=== PATIENT | male | born 1965 | race African-American/Black ===

== ENCOUNTER 2020-05-03 13:55 | Inpatient (IN) | payer BC ==
--- NOTE | 2020-05-03 14:18 | BHS.RME ---
Substance Use & Tx History - Substance Use History Alcohol Substance amount: 6 pack of 16 ounce beer Frequency of use: Daily Substance route: Oral Date of Last Use: 05/02/20 (First use age 17 y. No seizure or blackout. 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
--- NOTE | 2020-05-03 16:18 | HP ---
CIWA Score Nausea/Vomitin-No Nausea/No Vomiting Muscle Tremors: None Anxiety: 0-No Anxiety, at Ease Agitation: 0-Normal Activity Paroxysmal Sweats: No Perspiration Orientation: 2-Disoriented Date<2 days Tacttile Disturbances: 0-None Auditory Disturbances: 0-None Visual Disturbances: 0-None Headache: 0-None Present CIWA-Ar Total Score: 2 - Admission Criteria [facility]ASAS Guidelines: Admission for Medically Managed Detox: Requires at least one of the followin. CIWA greater than 12 2. Seizures within the past 24 hours 3. Delirium tremens within the past 24 hours 4. Hallucinations within the past 24 hours 5. Acute intervention needed for co occurring medical disorder 6. Acute intervention needed for co occurring psychiatric disorder 7. Severe withdrawal that cannot be handled at a lower level of care (continued vomiting, continued diarrhea, abnormal vital signs) requiring intravenous medication and/or fluids 8. Admission ROS [facility] - HPI Allergies/Adverse Reactions: Allergies Allergy/AdvReac Type Severity Reaction Status Date / Time No Known Allergies Allergy Verified 05/03/20 16:30 History of Present Illness: pt here requesting detox form alcohol use . Pt is poor historian , intoxicated WES 0.158 . " I have been drinking a lot lately " denies medical / psychiatric issues , states he is on no meds Exam Limitations: Intoxication - Review of Systems Constitutional: No Symptoms Reported EENT: reports: No Symptoms Reported Respiratory: reports: No Symptoms reported Cardiac: reports: No Symptoms Reported GI: reports: No Symptoms Reported : reports: No Symptoms Reported Musculoskeletal: reports: No Symptoms Reported Integumentary: reports: No Symptoms Reported Neuro: reports: No Symptoms reported Endocrine: reports: No Symptoms Reported Hematology: reports: No Symptoms Reported Psychiatric: reports: Disorientated Patient History - Smoking Cessation Smoking history: Smoker current status UNK Initiated information on smoking cessation: No - Substances abused Alcohol Substance route: Oral Frequency: Daily Amount used: liquor- 1 pint, beer- 1 six pk Age of first use: 17 Date of last use: 05/03/20 Admission Physical Exam [facility] Physical General Appearance: Yes: Intoxicated HEENTM: Yes: EOMI, Hearing grossly Normal, Normocephalic, Normal Voice Respiratory: Yes: Chest Non-Tender, Lungs Clear, Normal Breath Sounds, No Respiratory Distress, No Accessory Muscle Use Neck: Yes: No masses,lesions,Nodules, Trachea in good position Cardiology: Yes: Regular Rhythm, Regular Rate, S1, S2 Abdominal: Yes: Non Tender, Soft Musculoskeletal: Yes: Other (staggering gait) Extremities: Yes: Normal Range of Motion, Non-Tender Neurological: Yes: Alert, Motor Strength 5/5 Integumentary: Yes: Dry, Warm - Diagnostic (1) Alcohol intoxication Current Visit: Yes Status: Acute Breathalyzer - Breathalyzer Breathalyzer: 0.158 Urine Drug Screen - Test Device Lot number: [id number] Expiration date: 07/04/21 - Control Is test valid?: Yes - Results Drug screen NEGATIVE: Yes Inpatient Rehab Admission - Rehab Decision to Admit Inpatient rehab admission?: No
[2020-05-03] MEDS ORDERED: MAGNESIUM CITRATE 300 ML BOTTLE PO PRN (16:30)
[2020-05-03] MEDS ORDERED: IBUPROFEN 400 MG TABLET (FP) PO PRN (16:30)
[2020-05-03] MEDS ORDERED: MAGNESIUM HYDROX 2400MG/30ML ORAL SUSPENSION 30 ML CUP PO PRN (16:30)
[2020-05-03] MEDS ORDERED: MENTHOL/PHENOL 1 EACH UD MM PRN (16:30)
[2020-05-03] MEDS ORDERED: ACETAMINOPHEN 325 MG TABLET (FP) PO PRN ×2 (16:30)
[2020-05-03] MEDS ORDERED: BISMUTH SUBSALICYLATE 524 MG/30 ML UD PO PRN (16:30)
[2020-05-03] MEDS ORDERED: MAG HYDROX/AL HYDROX/SIMETH 30 ML UNIT-DOSE CUP PO PRN (16:30)
[2020-05-03 16:50] VITALS: BMI 27.7
[2020-05-03] MEDS: chlordiazePOXIDE HCL 10 MG CAPSULE PO PRN (17:48)
[2020-05-03] MEDS: THIAMINE HCL 100 MG TABLET (FP) PO SCH (22:18)
[2020-05-03] MEDS: hydrOXYzine PAMOATE 25 MG CAPSULE (FP) PO PRN (22:18)
[2020-05-03] MEDS: MELATONIN 5 MG TABLETS PO PRN (22:18)
[2020-05-03] MEDS: chlordiazePOXIDE HCL 25 MG CAPSULE PO SCH (22:20)
[2020-05-04] MEDS: chlordiazePOXIDE HCL 25 MG CAPSULE PO SCH ×3 (06:16→22:09)
[2020-05-04] MEDS: PRENATAL VITAMINS W/ FOLIC ACID TABLET (FP) PO SCH (10:21)
[2020-05-04] MEDS: hydrOXYzine PAMOATE 25 MG CAPSULE (FP) PO PRN ×2 (10:23→22:08)
[2020-05-04] MEDS: chlordiazePOXIDE HCL 10 MG CAPSULE PO PRN (10:45)
--- NOTE | 2020-05-04 10:51 | PN ---
[facility] CIWA - CIWA Score Nausea/Vomitin-No Nausea/No Vomiting Muscle Tremors: 4-Moderate,w/Arms Extend Anxiety: 4-Mod. Anxious/Guarded Agitation: 0-Normal Activity Paroxysmal Sweats: 1-Minimal Palms Moist Orientation: 0-Oriented Tacttile Disturbances: 0-None Auditory Disturbances: 0-None Visual Disturbances: 0-None Headache: 0-None Present CIWA-Ar Total Score: 9 BHS Progress Note (SOAP) Subjective: Pt is a 54 y/o male admitted to detox for alcohol withdrawal sx. Pt is aon Librium regimen. WES 0.158 on admission. c/o anxiety tremors Fatigue Objective: 05/04/20 10:49 Vital Signs - 24 hr 05/03/20 05/03/20 05/03/20 16:38 17:54 20:42 Temperature 97 F L 97.3 F L 98.2 F Pulse Rate 84 91 H 108 H Respiratory 16 18 18 Rate Blood Pressure 139/77 144/90 139/96 O2 Sat by Pulse 96 Oximetry (%) 05/04/20 05/04/20 05/04/20 00:30 03:30 06:15 Temperature 98.4 F Pulse Rate 110 H Respiratory 20 18 16 Rate Blood Pressure 138/74 O2 Sat by Pulse 95 Oximetry (%) 05/04/20 09:14 Temperature 98.1 F Pulse Rate 99 H Respiratory 18 Rate Blood Pressure 131/73 O2 Sat by Pulse 95 Oximetry (%) Labs pending draw-pt refused. This designer/writer spoke with patient and explained the need to have a baseline lab results at his hospital visit(pt concerned about constant blood drawn at every hospital he goes)-First admission to [facility]. Pt appeared to agree with blood draw in the morning. Nurse Coty informed of pt's plan to draw blood tomorrow morning. Assessment: 05/04/20 10:53 withdrawal sx Plan: cont detox increase po fluids maintain safety
[2020-05-04] MEDS: THIAMINE HCL 100 MG TABLET (FP) PO SCH (22:08)
[2020-05-04] MEDS: MELATONIN 5 MG TABLETS PO PRN (22:08)
[2020-05-05] MEDS: chlordiazePOXIDE 5 MG CAPSULE PO SCH ×3 (06:34→22:28)
--- NOTE | 2020-05-05 09:34 | PN ---
[facility] CIWA - CIWA Score Nausea/Vomitin-No Nausea/No Vomiting Muscle Tremors: 5 Anxiety: 4-Mod. Anxious/Guarded Agitation: 4-Moderately Restless Paroxysmal Sweats: 1-Minimal Palms Moist Orientation: 0-Oriented Tacttile Disturbances: 0-None Auditory Disturbances: 0-None Visual Disturbances: 0-None Headache: 0-None Present CIWA-Ar Total Score: 14 BHS Progress Note (SOAP) Subjective: Tremors anxiety sweats Pt refused blood work again this morning stating that he does not know why we need all the blood and does not want to donate blood. and also does not want to feel weakened by loss of blood. Pt was spoken to by his case management manager outside who spoke in his language explaining need and benefit for his care and patient finally agreed to get blood work done. Pt was ensured no blood donation occurs here at this location. Pt was case conferenced with Ms Lauryn Beltran, counselor Charlotte Ayala,this rewriter with his nurse Ms Coty Harris RN. Objective: 05/05/20 10:21 Vital Signs - 8 hr 05/05/20 05/05/20 03:30 06:29 Temperature 98.1 F Pulse Rate 87 Respiratory 18 18 Rate Blood Pressure 128/79 O2 Sat by Pulse 96 Oximetry (%) Labs drawn this morning. covid-19 result pending Alert o x 3 nad oob ambulating with steady gait Assessment: 05/05/20 10:22 withdrawal sx Plan: cont detox maintain safety increase po fluids pt is on Ensure 1 can BID
[2020-05-05] MEDS: PRENATAL VITAMINS W/ FOLIC ACID TABLET (FP) PO SCH (10:10)
[2020-05-05] MEDS: chlordiazePOXIDE HCL 10 MG CAPSULE PO PRN (10:10)
[2020-05-05] MEDS: hydrOXYzine PAMOATE 25 MG CAPSULE (FP) PO PRN ×2 (10:12→22:28)
[2020-05-05 15:20] LABS: HEMATOCRIT 45.2 % (35.4-49); MCH 34.4 pg (25.7-33.7); MCHC 33.2 g/dl (32.0-35.9); MEAN CELL VOLUME 103.6 fl (80-96); MEAN PLT VOLUME 11.1 fl (7.5-11.1); PLATELET COUNT 72 K/MM3 (134-434); RBC 4.36 M/mm3 (4.00-5.60); RDW 13.8 % (11.9-15.9); WHITE BLOOD COUNT 5.2 K/mm3 (4.0-10.0)
[2020-05-05 15:28] LABS: ALBUMIN 3.7 g/dl (3.4-5.0); BILIRUBIN,TOTAL 0.6 mg/dL (0.2-1); BLOOD UREA NITROGEN 6.7 mg/dL (7-18); CALCIUM 9.2 mg/dL (8.5-10.1); CREATININE 0.9 mg/dL (0.55-1.3); POTASSIUM 3.8 mmol/L (3.5-5.1); TOT PROT 8.2 g/dl (6.4-8.2)
[2020-05-05 19:25] LABS: EPI CELLS 11 /uL (0-25.1); HYALINE CASTS 5 /uL (0-3.1); URINE APPEARANCE CLEAR; URINE BACTERIA 31 /uL (0-1359); URINE BILIRUBIN NEGATIVE (NEGATIVE); URINE COLOR YELLOW; URINE GLUCOSE (UA) NEGATIVE (NEGATIVE); URINE KETONE TRACE (NEGATIVE); URINE LEUK ESTERASE NEGATIVE (NEGATIVE); URINE NITRITE NEGATIVE (NEGATIVE); URINE PROTEIN 1+ (NEGATIVE); URINE UROBILINOGEN 0.2 mg/dL (0.2-1.0); URINE WBC 25 /uL (0-25.8)
[2020-05-05] MEDS: THIAMINE HCL 100 MG TABLET (FP) PO SCH (22:28)
[2020-05-05] MEDS: MELATONIN 5 MG TABLETS PO PRN (22:28)
[2020-05-06] MEDS ORDERED: chlordiazePOXIDE HCL 10 MG CAPSULE PO PRN
[2020-05-06] MEDS: chlordiazePOXIDE HCL 10 MG CAPSULE PO SCH ×3 (05:47→22:12)
[2020-05-06] MEDS: PRENATAL VITAMINS W/ FOLIC ACID TABLET (FP) PO SCH (10:26)
[2020-05-06] MEDS: hydrOXYzine PAMOATE 25 MG CAPSULE (FP) PO PRN ×2 (10:27→22:12)
--- NOTE | 2020-05-06 14:02 | PN ---
S CIWA - CIWA Score Nausea/Vomitin-No Nausea/No Vomiting Muscle Tremors: 2 Anxiety: 2 Agitation: 3 Paroxysmal Sweats: 1-Minimal Palms Moist Orientation: 0-Oriented Tacttile Disturbances: 0-None Auditory Disturbances: 0-None Visual Disturbances: 0-None Headache: 0-None Present CIWA-Ar Total Score: 8 BHS Progress Note (SOAP) Subjective: Reports getting better. c/o slight tremors anxiety Objective: 05/06/20 14:01 Vital Signs - 24 hr 05/05/20 05/05/20 05/06/20 16:50 20:30 06:25 Temperature 98.4 F 98.6 F 98.3 F Pulse Rate 91 H 99 H 86 Respiratory 18 18 18 Rate Blood Pressure 146/78 146/87 127/73 O2 Sat by Pulse 97 97 Oximetry (%) 05/06/20 08:45 Temperature 98 F Pulse Rate 95 H Respiratory 20 Rate Blood Pressure 134/77 O2 Sat by Pulse Oximetry (%) Laboratory Tests 05/05/20 05/05/20 05/05/20 10:00 10:00 10:00 WBC 5.2 RBC 4.36 Hgb 15.0 Hct 45.2 MCV 103.6 H MCH 34.4 H MCHC 33.2 RDW 13.8 Plt Count 72 L MPV 11.1 Sodium 142 Potassium 3.8 Chloride 105 Carbon Dioxide 30 Anion Gap 8 BUN 6.7 L Creatinine 0.9 Est GFR (CKD-EPI)AfAm 110.27 Est GFR (CKD-EPI)NonAf 95.14 Random Glucose 101 Calcium 9.2 Total Bilirubin 0.6 AST 43 H ALT 31 Alkaline Phosphatase 132 H Total Protein 8.2 Albumin 3.7 Urine Color Urine Appearance Urine pH Ur Specific [place] Urine Protein Urine Glucose (UA) Urine Ketones Urine Blood Urine Nitrite Urine Bilirubin Urine Urobilinogen Ur Leukocyte Esterase Urine WBC (Auto) Urine RBC (Auto) Urine Casts (Auto) U Epithel Cells (Auto) Urine Crystals (Auto) Urine Bacteria (Auto) Syphilis Serology Non-reactive 05/05/20 13:20 WBC RBC Hgb Hct MCV MCH MCHC RDW Plt Count MPV Sodium Potassium Chloride Carbon Dioxide Anion Gap BUN Creatinine Est GFR (CKD-EPI)AfAm Est GFR (CKD-EPI)NonAf Random Glucose Calcium Total Bilirubin AST ALT Alkaline Phosphatase Total Protein Albumin Urine Color Yellow Urine Appearance Clear Urine pH 6.0 Ur Specific [place] 1.023 Urine Protein 1+ H Urine Glucose (UA) Negative Urine Ketones Trace H Urine Blood Negative Urine Nitrite Negative Urine Bilirubin Negative Urine Urobilinogen 0.2 Ur Leukocyte Esterase Negative Urine WBC (Auto) 25 Urine RBC (Auto) 44.0 Urine Casts (Auto) 5 U Epithel Cells (Auto) 11 Urine Crystals (Auto) Urine Bacteria (Auto) 31 Syphilis Serology covid-19 result pending Alert o x 3 nad oob ambulating with steady gait Assessment: 05/06/20 14:02 mild withdrawal sx Plan: cont detox increase po fluids maintain safety Pt may discharge in the morning if medically stable.
[2020-05-06] MEDS: THIAMINE HCL 100 MG TABLET (FP) PO SCH (22:12)
[2020-05-06] MEDS: MELATONIN 5 MG TABLETS PO PRN (22:12)
[2020-05-07] MEDS ORDERED: chlordiazePOXIDE HCL 10 MG CAPSULE PO ONE (05:00)
[2020-05-07 06:34] VITALS: BP 132/79; PULSE 91; TEMP 97.1
== END 2020-05-07 07:00 | disposition home or self-care (01) | DRG 775 ==
LOC: YASAS 13:55 → Y5N DETOX 16:49
PROVIDERS: ADMIT Allergy & Immunology; ATTEND Allergy & Immunology
PROC: HZ2ZZZZ Detoxification Services for Substance Abuse Treatment (ICD-10-PCS; principal; 2020-05-03)
DX: F10.230 Alcohol dependence with withdrawal, uncomplicated (principal); F10.220 Alcohol dependence with intoxication, uncomplicated; F17.210 Nicotine dependence, cigarettes, uncomplicated; M79.671 Pain in right foot; M79.672 Pain in left foot; R26.0 Ataxic gait
CPT/HCPCS: 36415; 80053; 81003; 85027; 86780; U0003